=== PATIENT | female | born 1950 | race African-American/Black ===

== ENCOUNTER 2017-06-10 23:39 | Emergency (ER) | payer MEDICARE, OTHER ==
[~2017-06-10] VITALS: Ht 162.6 cm; Wt 72.0 kg
[~2017-06-10 23:39] MED LIST: ALLOPURINOL100 MG PO; AMBIEN5 MG OR; ASPIRIN LOW DOS81 M2 PO; ASPIRIN81 MG PO; CALCIUM600 M2 OR; HYDROCHLOROT25 MG OR; JANUMET1 TAB PO; JANUVIA50 MG PO; LIPITOR40 MG PO; MEDDOSEPAK PO; MELOXICAM7.5 MG PO; METFORMIN500 M1 OR; METOPROL TAR25 M1 OR; METOPROL TAR25 MG PO; NEXIUM40 M1 PO; PERCOCET 5/321 COMBO PO; SYMBICORT 80-4.5MCG IN; SYMBICORT1 AE1 IN; TEKTURNA150 MG PO; TEKTURNA300 MG OR; TORADOL OR; ULTRAM50 M1 OR; VENTOLIN HF1 IN; cozaar OR
[2017-06-11 00:25] LABS: HEMATOCRIT 40.5 % (37.0-47.0); HEMOGLOBIN 13.4 g/dl (12.0-16.0); IMMATURE GRANULOCYTES 0.3 % (0.0-1.0); MEAN CELL VOLUME 90.8 fL CALC (80.0-100.0); MEAN CORPUSCULAR HGB CONC 33.1 g/L CALC (32.0-36.0); NEUT# 3.89 thou/uL (2.00-7.15); RED BLOOD COUNT 4.46 mill/uL (4.20-5.60); RED CELL DISTRI WIDTH 14.8 % (11.5-15.5)
[2017-06-11] MEDS ORDERED: NEXIUM40 M1 PO (00:32)
[2017-06-11] MEDS ORDERED: GABAPENTIN100 MG PO (00:33)
[2017-06-11] MEDS ORDERED: AMLODIPINE2.5 MG PO (00:35)
[2017-06-11] MEDS ORDERED: CILOSTAZOL100 MG PO (00:36)
[2017-06-11] MEDS ORDERED: OXYCODONE HCL15 MG PO (00:37)
[2017-06-11 00:41] LABS: ALBUMIN 4.1 g/dL (3.2-5.0); ALKALINE PHOSPHATASE 99 u/l (38-126); ANION GAP 15 (6-22 (CALC)); BILIRUBIN, TOTAL 0.4 mg/dL (0.0-1.4); BUN 12 mg/dL (8-23); BUN/CREATININE RATIO 22 (12-20 (CALC)); CARBON DIOXIDE 28 mmol/l (22-30); CHLORIDE 105 mmol/l (95-108); CREATININE 0.6 mg/dL (0.5-1.0); GFR > 60 ML/MIN (>=60 (CALC)); GFR FOR AFR.AMER. > 60 ML/MIN (>=60 (CALC)); POTASSIUM 3.9 mmol/l (3.5-5.1); SGOT/AST 23 u/l (9-36); SGPT/ALT 33 u/l (11-66); SODIUM 144 mmol/l (137-146)
[2017-06-11 00:44] LABS: ACT PARTIAL THROMBO TIME 25.4 SECONDS (20.0-32.5); INTERNATIONAL NORMALIZED RATIO 0.9 RATIO (0.7-1.3); PROTHROMBIN TIME 10.5 SECONDS (9.0-12.5)
[2017-06-11 00:48] LABS: URINE BILIRUBIN - DIPSTICK NEGATIVE (NEGATIVE); URINE BLOOD DIPSTICK NEGATIVE (NEGATIVE); URINE CLARITY CLEAR; URINE COLOR YELLOW; URINE GLUCOSE - DIPSTICK NEGATIVE (NEGATIVE); URINE KETONE NEGATIVE (NEGATIVE); URINE LEUK ESTERASE NEGATIVE (NEGATIVE); URINE NITRITE - DIPSTICK NEGATIVE (Negative); URINE PROTEIN - DIPSTICK NEGATIVE (NEG-TRACE); URINE SPECIFIC GRAVITY <=1.005; URINE UROBILINOGEN - DIPSTICK 0.2 E.U./dL (0.2)
[2017-06-11 05:53] VITALS: BP 190/91
== END 2017-06-11 06:09 | disposition home or self-care (01) ==
LOC: ED 23:39
PROVIDERS: Emergency Medicine
DX: M79.651 Pain in right thigh (principal); G89.29 Other chronic pain; Z96.641 Presence of right artificial hip joint

== ENCOUNTER 2017-06-13 23:02 | Emergency (ER) | payer MEDICARE, OTHER ==
[~2017-06-13] VITALS: Ht 162.6 cm; Wt 65.0 kg
[~2017-06-13 23:02] MED LIST changes: +AMLODIPINE2.5 MG PO; +CILOSTAZOL100 MG PO; +GABAPENTIN100 MG PO; +OXYCODONE HCL15 MG PO
[2017-06-14 00:10] VITALS: BP 158/96
== END 2017-06-14 00:24 | disposition home or self-care (01) ==
LOC: ED 23:02
DX: R10.2 Pelvic and perineal pain (principal); M19.90 Unspecified osteoarthritis, unspecified site; F17.210 Nicotine dependence, cigarettes, uncomplicated

== ENCOUNTER 2017-09-07 16:57 | Emergency (ER) | payer MEDICARE, OTHER ==
[~2017-09-07] VITALS: Ht 162.6 cm; Wt 63.6 kg
[2017-09-07] MEDS ORDERED: HYZAAR1 TAB PO (17:49)
[2017-09-07] MEDS ORDERED: NORVASC PO (17:51)
[2017-09-07] MEDS ORDERED: OMEGA 31000 MG PO (17:53)
[2017-09-07 17:54] LABS: HEMATOCRIT 40.8 % (37.0-47.0); HEMOGLOBIN 13.7 g/dl (12.0-16.0); IMMATURE GRANULOCYTES 0.2 % (0.0-5.0); MEAN CELL VOLUME 87.4 fL CALC (80.0-100.0); MEAN CORPUSCULAR HGB 29.3 pG CALC (26.0-32.0); MEAN CORPUSCULAR HGB CONC 33.6 g/L CALC (32.0-36.0); NEUT# 3.62 thou/uL (2.00-7.15); RED BLOOD COUNT 4.67 mill/uL (4.20-5.60)
[2017-09-07] MEDS ORDERED: MAGNESIUM250 M1 PO (17:55)
[2017-09-07] MEDS ORDERED: TRAMADOL HCL50 MG PO (17:56)
[2017-09-07] MEDS ORDERED: NABUMETONE500 MG PO (18:04)
[2017-09-07 18:07] LABS: ALBUMIN 4.3 g/dL (3.2-5.0); ALKALINE PHOSPHATASE 126 u/l (38-126); ANION GAP 15 (6-22 (CALC)); BILIRUBIN, TOTAL 0.6 mg/dL (0.0-1.4); BUN 10 mg/dL (8-23); BUN/CREATININE RATIO 16 (12-20 (CALC)); CARBON DIOXIDE 26 mmol/l (22-30); CHLORIDE 106 mmol/l (95-108); CREATININE 0.6 mg/dL (0.5-1.0); GFR > 60 ML/MIN (>=60 (CALC)); GFR FOR AFR.AMER. > 60 ML/MIN (>=60 (CALC)); LIPASE 82 u/l (23-300); POTASSIUM 3.4 mmol/l (3.5-5.1); SGOT/AST 20 u/l (9-36); SGPT/ALT 24 u/l (11-66); SODIUM 144 mmol/l (137-146); TOTAL PROTEIN 7.2 g/dL (6.3-8.2)
[2017-09-07] MEDS ORDERED: ONDANSETRON4 MG PO (18:45)
[2017-09-07 19:00] VITALS: BP 152/76
[2017-09-07 19:01] LABS: URINE BILIRUBIN - DIPSTICK NEGATIVE (NEGATIVE); URINE BLOOD DIPSTICK NEGATIVE (NEGATIVE); URINE COLOR YELLOW; URINE GLUCOSE - DIPSTICK NEGATIVE (NEGATIVE); URINE KETONE NEGATIVE (NEGATIVE); URINE LEUK ESTERASE NEGATIVE (NEGATIVE); URINE NITRITE - DIPSTICK NEGATIVE (Negative); URINE PROTEIN - DIPSTICK NEGATIVE (NEG-TRACE); URINE UROBILINOGEN - DIPSTICK 0.2 E.U./dL (0.2)
[2017-09-07 19:40] LABS: URINE CLARITY CLEAR
== END 2017-09-07 19:00 | disposition home or self-care (01) ==
LOC: ED 16:57
PROVIDERS: Emergency Medicine
DX: G89.29 Other chronic pain (principal); M25.551 Pain in right hip; M79.604 Pain in right leg; R11.0 Nausea; R10.13 Epigastric pain; Z98.890 Other specified postprocedural states; F17.210 Nicotine dependence, cigarettes, uncomplicated

== ENCOUNTER 2018-06-21 18:35 | Emergency (ER) | payer MEDICARE, OTHER ==
[~2018-06-21] VITALS: Ht 162.6 cm; Wt 68.0 kg
[~2018-06-21 18:35] MED LIST changes: +HYZAAR1 TAB PO; +MAGNESIUM250 M1 PO; +NABUMETONE500 MG PO; +NORVASC PO; +OMEGA 31000 MG PO; +ONDANSETRON4 MG PO; +TRAMADOL HCL50 MG PO
[2018-06-21] MEDS ORDERED: MEDDOSEPAK PO ×2 (20:07→20:22)
[2018-06-21 20:20] VITALS: BP 106/65
== END 2018-06-21 20:20 | disposition home or self-care (01) ==
LOC: ED 18:35
DX: M25.561 Pain in right knee (principal); I10 Essential (primary) hypertension; E11.9 Type 2 diabetes mellitus without complications

== ENCOUNTER 2019-11-07 12:07 | Inpatient (IN) | payer MEDICARE, OTHER ==
[~2019-11-07] VITALS: Ht 162.6 cm; Wt 52.0 kg
--- NOTE | 2019-11-07 12:12 | NUR ---
SAW PATIENT IN ER LOBBY PATIENT ALERT AND ORIENTED TO PERSON PLACE AND TIME. PATIENT AND FAMILY ACKNOWLEDGES WAIT TIME MD NOTIFIED OF PATIENT STATUS
--- NOTE | 2019-11-07 13:25 | NUR ---
PATIENT TO ROOM VIA WHEELCHAIR AND PHYSICIAN NOTIFIED OF PATIENT STATUS
--- NOTE | 2019-11-07 14:30 | NUR ---
PT RESTING ON STRETCHER WATCHING TV. DENIES ANY NEEDS
[2019-11-07 15:10] LABS: HEMATOCRIT 25.1 % (37.0-47.0); HEMOGLOBIN 7.9 g/dl (12.0-16.0); IMMATURE GRANULOCYTES 0.8 % (0.0-5.0); MEAN CELL VOLUME 100.4 fL CALC (80.0-100.0); MEAN CORPUSCULAR HGB 31.6 pG CALC (26.0-32.0); MEAN CORPUSCULAR HGB CONC 31.5 g/dL CAL (32.0-36.0); NEUT# 9.2 thou/uL (2.00-7.15); RED BLOOD COUNT 2.5 mill/uL (4.20-5.60); RED CELL DISTRI WIDTH 19.2 % (11.5-15.5)
[2019-11-07 15:38] LABS: ALBUMIN 3.1 g/dL (3.2-5.0); ALKALINE PHOSPHATASE 111 u/l (38-126); ANION GAP 12 (6-22 (CALC)); BILIRUBIN, TOTAL 0.6 mg/dL (0.0-1.4); BUN 14 mg/dL (8-23); BUN/CREATININE RATIO 16 (12-20 (CALC)); CARBON DIOXIDE 22 mmol/l (22-30); CHLORIDE 98 mmol/l (95-108); CREATININE 0.9 mg/dL (0.5-1.0); ETHYL ALCOHOL 0 mg/dl (0-30); GFR > 60 ML/MIN (>=60 (CALC)); GFR FOR AFR.AMER. > 60 ML/MIN (>=60 (CALC)); POTASSIUM 3.5 mmol/l (3.5-5.1); SGOT/AST 39 u/l (9-36); SODIUM 129 mmol/l (137-146); TOTAL PROTEIN 6.5 g/dL (6.3-8.2)
--- NOTE | 2019-11-07 15:56 | NUR ---
PT RECONNECTED TO MONITOR AFTER RETURNING FROM XRAY. DENIES ANY NEEDS
--- NOTE | 2019-11-07 16:55 | NUR ---
PT PLACED ON BED WARREN AND SHE STATES THAT SHE CANNOT URINATE. NOTIFIED
--- NOTE | 2019-11-07 17:30 | NUR ---
PT RESTING ON STRETCHER. SHE WAS REMINDED ABOUT URINE AND WAS PLACED ON BEDPAN
[2019-11-07 18:28] LABS: URINE BILIRUBIN - DIPSTICK NEGATIVE (NEGATIVE); URINE BLOOD DIPSTICK NEGATIVE (NEGATIVE); URINE COLOR YELLOW; URINE GLUCOSE - DIPSTICK NEGATIVE (NEGATIVE); URINE KETONE TRACE mg/dL (NEGATIVE); URINE LEUK ESTERASE NEGATIVE (NEGATIVE); URINE NITRITE - DIPSTICK NEGATIVE (Negative); URINE PROTEIN - DIPSTICK TRACE mg/dL (NEG-TRACE); URINE SPECIFIC GRAVITY 1.025
--- NOTE | 2019-11-07 18:30 | NUR ---
PT WAS UNABLE TO URINATE, SHE WAS STRAIGHT CATH. URINE DARK YELLOW AND NOT CLOUDY. SHE TOLERATED WELL.
--- NOTE | 2019-11-07 18:40 | NUR ---
IT WAS NOTICED THAT HR IS ELEVATED. MD NOTIFIED. EKG DONE PROMPTLY. MD AT BEDSIDE
--- NOTE | 2019-11-07 19:14 | NUR ---
PT GIVEN CARDIZEM BOLUS FOR HR 158 AFIV WITH RVR. PT IS ALERT ORIENTED WITH NO ACTIVE HALLUCINATIONS.
--- NOTE | 2019-11-07 19:15 | NUR ---
GAVE REPORT TO ANITA SHE IS NOTIFIED OF PT RECENT CRITICALS
--- NOTE | 2019-11-07 20:50 | NUR ---
HR REMAINS IN THE 150'S. DR. HDZ CALLED AND ADVISED. ORDER FOR METOPROLOL GIVEN.
--- NOTE | 2019-11-07 21:17 | NUR ---
REPORT TO PAUL CAIN/ICU
--- NOTE | 2019-11-07 21:30 | NUR ---
PT REPOSITIONED SEVERAL TIMES FOR COMFORT. RESP EASY REG. FEELS BETTER. HR SLOWING
--- NOTE | 2019-11-07 21:41 | NUR ---
PT TO ICU WITH PORTABLE MONITOR/CARDIZEM INFUSING. PT A/O NAD. VSS.
--- NOTE | 2019-11-07 21:50 | NUR ---
PATIENT IS AWAKE, ALERT AND ORIENTED X4. PT IS ON RA, SATS 100%, NO SOB NOTED. NURSING ASSESSMENT PERFORMED, COMPLAINS OF "TAILBONE" PAIN, I LET HER KNOW I WOULD NOTIFY THE DR PLANT CONTROLS SPECIALIST TONIGHT. REPORTS IT STARTED SINCE SHE HAS BEEN USING A BEDSIDE COMMODE AT HOME ABOUT TW0 WEEKS AGO. ADMISSION COMPLETED. L-CHEST PORT INTACT, CARDIZEM DRIP INFSUING AT 20 MG/HR AT ARRIVAL FROM ER, PT IS SR ON TELEMETRY, WILL WEAN DOWN, HR RANGES IN THE 90'S. BP WNL. EVA HOSE PLACED. SNACKS PROVIDED AND ASTER MARILUZ. POC DISCUSSED, PATIENT UNDERSTANDS AND AGREES. CALL LIGHT WITHIN REACH.
[2019-11-07 22:00] VITALS: BP 109/50
[2019-11-07 22:15] VITALS: BP 117/66
[2019-11-07 22:30] VITALS: BP 120/64
[2019-11-07 22:45] VITALS: BP 121/62
[2019-11-07 23:00] VITALS: BP 115/56
[2019-11-07 23:15] VITALS: BP 113/66
--- NOTE | 2019-11-07 23:28 | NUR ---
EKG PERFORMED BY RESPIRATORY THERAPIST, NSR WITH 1ST DEGREE AV BLOCK. HR 95-102 BPM. BLOOD PRESSURE WNL.
--- NOTE | 2019-11-07 23:46 | NUR ---
NOTIFIED DR DOMINGUEZ OF PATIENT C/O TAILBONE PAIN AND HOW IT STARTED, NEW ORDERS PLACED FOR COCCYX/SACRUM X-RAY.
[2019-11-08] VITALS (21 sets, daily range): BP systolic 99–146; BP diastolic 50–92
--- NOTE | 2019-11-08 00:18 | NUR ---
BLOOD DRAWN FROM LEFT CHEST PORT. PT TOLERATED WELL.
--- NOTE | 2019-11-08 01:35 | NUR ---
PATIENT WAS SAFELY TRANSFERRED TO A STRETCHER FOR AN XRAY FOR HER COCCYX, PT WAS ABLE TO TOLERATE PROCEDURE, PT SAFELY TRANSFERRED BACK TO BED. PLACED A PILLOW UNDER HER BUTTOCKS AND A HEAT PACK. CALL LIGHT WITHIN REACH.
--- NOTE | 2019-11-08 02:20 | NUR ---
PATIENT ACID REGENERATOR LIGHT, PERICARE PROVIDED, NEW BRIEF PLACED. PT IS INCONTINENT. PT REPOSITIONED TO HER LEFT SIDE. CALL LIGHT WITHIN REACH.
--- NOTE | 2019-11-08 03:15 | NUR ---
PATIENT HIGH SCHOOL BIOLOGY TEACHER LIGHT, REQUESTS TO BE ASSISTED TO STAND UP. PT ASSISTED TO STAND. PT HAS GENERALIZED WEAKNESS. PT REPORTS SHE IS TIRED OF LAYING IN BED ALL DAY. I OFFERED HER THE RECLINER, PATIENT AGREED, PT NOW SITS WITH LEGS UP IN THE RECLINER. CALL LIGHT WITHIN REACH.
--- NOTE | 2019-11-08 04:10 | NUR ---
PT FOREST FIRE CONTROL OFFICER LIGHT, REQUESTS TO LAY BACK IN BED. TRANSFERRED WITH ASSIST X2. LAYS ON HER LEFT SIDE. CALL LIGHT WITHIN REACH.
--- NOTE | 2019-11-08 06:15 | NUR ---
BLOOD DRAWN FROM PATIENT'S LEFT SIDE CHEST. NO COMPLAINTS OR NEEDS AT THIS TIME.
[2019-11-08 06:28] LABS: HEMATOCRIT 23.1 % (37.0-47.0); HEMOGLOBIN 7.3 g/dl (12.0-16.0); IMMATURE GRANULOCYTES 0.5 % (0.0-5.0); MEAN CELL VOLUME 99.6 fL CALC (80.0-100.0); MEAN CORPUSCULAR HGB 31.5 pG CALC (26.0-32.0); MEAN CORPUSCULAR HGB CONC 31.6 g/dL CAL (32.0-36.0); NEUT# 8.56 thou/uL (2.00-7.15); RED BLOOD COUNT 2.32 mill/uL (4.20-5.60); RED CELL DISTRI WIDTH 18.9 % (11.5-15.5)
[2019-11-08 06:38] LABS: ANION GAP 9 (6-22 (CALC)); BUN 12 mg/dL (8-23); BUN/CREATININE RATIO 16 (12-20 (CALC)); CARBON DIOXIDE 24 mmol/l (22-30); CHLORIDE 97 mmol/l (95-108); CREATININE 0.8 mg/dL (0.5-1.0); GFR > 60 ML/MIN (>=60 (CALC)); GFR FOR AFR.AMER. > 60 ML/MIN (>=60 (CALC)); MAGNESIUM 1.7 mg/dL (1.6-2.3); POTASSIUM 3.1 mmol/l (3.5-5.1); SODIUM 127 mmol/l (137-146)
--- NOTE | 2019-11-08 07:42 | NUR ---
Patient is screened for rehab intervention and no needs are identified at this time
--- NOTE | 2019-11-08 07:54 | NUR ---
RECIEVED REPORT FROM PAUL CASTELAN. PT RESTINGIN SEMI FOWLERS POSTIION UPON ENTERING ROOM. INTRODUCED SELF TO PT AND DISCUSSED POC. PT IS A/O X3. ASESSMENT AND VITALS OBTAINED AT THIS TIME. BP 118/69, HR 102, O2 100% ON ROOM AIR. REPSIRATIONS ARE EVEN AND UNLABORED WITH NO SIGNS OF DISTRES NOTED. LUNG SOUNDS ARE CLEAR. HEART RHYTHM IS NORMAL WITH TELE IN PLACE. BOWEL SOUNDS ARE ACTIVE IN ALL QUADRANTS, LAST REPORETD BM 11/08/2019. RADIAL AND PEDAL PULSES ARE STRONG WITH NORMAL CAPILLARY REFILL. RIGHT CHEST PORT RUNNING WITH IVF PER ORDER, SITE APPEARS HEALTHY AND PATENT. PT COMPLAINS OF 9/10 PAIN IN HIPS AND COCCYX.Q2 TURING ENFORCED WITH PILLOWS AND PT REQUESTED ICE PACKS. PT TO BE MEDICICATED PER EMAR. PT DENIES ANY OTHER PAIN OR DISCOMFORTS AT THIS TIME. ALL SAFETY PRECAUTIONS ARE IN PLACE. WILL CONTINUE TO MONITOR
--- NOTE | 2019-11-08 08:44 | NUR ---
SPOKE WITH SISTER OF PT. PERMISSION FROM PT TO GIVE SISTER CODE. UPDATE OF PT GIVEN TO SISTER.
--- NOTE | 2019-11-08 08:50 | NUR ---
DR DOMINGUEZ AT BEDSIDE DISCUSS POC WITH PT
--- NOTE | 2019-11-08 09:00 | NUR ---
NOTIFIED OF PT COMPLAINTS OF COCCYX PAIN. LORTAB ORDERED. PT STATES SHE WOULD LIKE TO TRY TYLENOL FIRST.
--- NOTE | 2019-11-08 10:14 | NUR ---
REASSESSMENT OF PAIN AT THIS TIME RESULTING IN 10/15. Q2 TURING EDNFORCED. PT TYPE AND SCREENED. 1 UNIT OF RBC ORDERED. ALL SFAETY PRECAUTIONS ARE IN PLACE. WILL CONTINUE TO MONITOR
--- NOTE | 2019-11-08 11:01 | NUR ---
CONSENT OBTAINED FOR RBCS. PT DENIED ANY QUESTIONS.
--- NOTE | 2019-11-08 12:03 | NUR ---
UNIT OF BLOOD STARTED BY Raj TORRES RN. PT EDUCATED ION S/S OF TRANSFUSION REACTIONS. PT VERBALIZED UNDERSTANDING. RESPIRATIONS ARE EVEN AND UNLABORED WITH NO SIGNS OF DISTRESS NOTED. TRANSFUSION RUNNING WITH EASE IN CHEST PORT.WRITTER TO REMAIN WITH PT FOR INITIAL 15 MIN. ALL SAFTEY PECAUTIONSA RE IN PLACE. WILL CONTINUE TO MONITOR
--- NOTE | 2019-11-08 12:16 | NUR ---
RBC RUNNING WTH EASE IN PORT. PT DENIES ANY S/S OF TRANSFUSION REACTIONS. VITALS SISGNS OBTAINED. BP 99/53, HR 77, O2 100% RESPIRATIONS ARE EVEN AND UNLABORED WITH NO SIGNS OF DISTRESS NOTED. PT REEDUCATED ON S/S OF TRANSFUSION REACTIONS. PT VERBALIZED UNDERSTANDING. ALL SFAETY PRECAUTIONS ARE IN PLACE. MALACHI CONTINUE TO MONITOR
--- NOTE | 2019-11-08 13:01 | NUR ---
RBC RUNNING WITH EASE THROUGH LEFT PORT. PT DENIES ANY S/S OF TRANSFUSION REACTIONS. VITALS OBTAINED. BP 103/50, HR 77, O2 100% ON ROOM AIR. RESPIRATIONS ARE EVEN AND UNLABORED WITH NO SIGNS OF DISTRESS NOTED. PT RE-EDUCATED ON S/S OF TRANSFUSION REACTION. PT VERBAILZED UNDERSTANDING. ALL SAFETY PRECAUTIONS ARE IN PLACE. WILL CONTINUE TO MONITOR
--- NOTE | 2019-11-08 14:10 | NUR ---
RBC TRANSFUSING WITH EASE IN LEFT CHEST PORT. PT DENIES ANY S/S OF TRANSFUSION REACTION. RESPIRATIONS ARE EVEN AND UNLABORED WITH NO SIGNS OF DISTRESS NOTED. PT INCONTIENT OF URINE AT THIS TIME. WRITTER ASSISTED PT WITH CLEANING UP. PT STATED SHE COULD GET UP AND USE BSC IF SHE WAS HELPED. BSC PLACED IN ROOM. WRITTER ENCOURAGED PT TO CALL FOR ASSISTANCE. ALL SAFTY PRECAUTIONS ARE IN PLACE WITH CALL LIGHT IN REACH. WILL CONTINUE TO MONITOR.
--- NOTE | 2019-11-08 15:07 | NUR ---
RBC TRANSFUSION ENDED. VITALS OBTAINED. BP 106/58, HR 70, O2 96% ON ROOM AIR. REPSIRATIONS ARE EVEN AND UNLABORED WITH NO SIGNS OF DISTRESS NOTED. PT DENIES ANY PAIN OR DISCOMFORTS AT THIS TIME. ALL SAFETY PRECAUTIONS ARE IN PLACE. WILL CONTINUE TO MONITOR.
--- NOTE | 2019-11-08 15:47 | NUR ---
NOTIFIED OF PT COMPLAINTS OF COCCYX PAIN. LORTAB ORDERED.PT STATES SHE WOULD LIKE LIKE TO TRY THE TYLENOL FIRST.
--- NOTE | 2019-11-08 16:25 | NUR ---
PT RESTING IN SEMI FOWLERS POSITION WITH VISITOR AT BEDSIDE. RESPIRATIONS ARE EVEN AND UNLABORED WITH NO SIGNS OF DISTRESS NOTED. SR ON PAYROLL DIRECTOR. PT DENIES OF ANY PAIN OR DISCOMFORTS AT THIS TIME.IVF RUNNING PER ORDER, SITE APPEARS HEALTHY AND PATENT. ALL SAFETY PRECAUTIONS ARE IN PLACE WITH CALL LIGHT IN REACH. WILL CONTINUE TO MONITOR.
--- NOTE | 2019-11-08 21:38 | NUR ---
PATIENT ABLE TO TOLERATE HER BEDTIME MEDICATIONS. NO COMPLAINTS OF PAIN. NURSE ASSSESSMENT PERFORMED. PATIENT WATCHES TV. LEFT CHEST PORT INTACT, NS AT 100 ML/HR. LAYS ON HER LEFT SIDE. BP 140'S SYSTOLIC. SR ON TELEMETRY, HR RANGES 90'S. O2 SATS WNL, NO SOB NOTED. NO NEEDS AT THIS TIME. CALL LIGHT WITHIN REACH. POC DISCUSSED.
[2019-11-09] VITALS (9 sets, daily range): BP systolic 117–156; BP diastolic 56–73
--- NOTE | 2019-11-09 00:21 | NUR ---
PT REQUESTS SLEEPING MEDICATION, PROVIDED. ABLE TO SWALLOW WITHOUT DIFFICULTY, NEW ICED WATER WILL BE PROVIDED. WATCHES TV. CALL LIGHT WITHIN REACH.
--- NOTE | 2019-11-09 06:00 | NUR ---
PATIENT RESTS IN BED, WATCHES TV. NO ACUTE DISTRESS SHOWN. CALL LIGHT WITHIN REACH.
--- NOTE | 2019-11-09 06:00 | NUR ---
OMAR FIORE NOTIFIED ME EARLY THIS MORNING SHE WAS ASSISTING PATIENT TO BSC, PATIENT SLOWLY SAT HERSELF ON THE FLOOR. PATIENT DID NOT FALL, SHE IS WEAK AND WHEN TRANSFERRING SHE DECIDE TO SIT ON THE FLOOR SINCE SHE FELT TOO WEAK AT THAT MOMENT. NO COMPLAINTS FROM PATIENT, NO PAIN COMPLAINTS.
--- NOTE | 2019-11-09 06:45 | NUR ---
RECIEVED REPORT FROM PAUL CARVAJAL. ASSUMED PT CARE.
--- NOTE | 2019-11-09 07:30 | NUR ---
PT A&OX4, ABLE TO MAKE NEEDS KNOWN. PT REMAINS SR ON TELEMETRY, HR 90. PT DENIES CP, SOB OR DISTRESS NOTED AT THIS TIME. RESPIRATIONS EVEN/UNLABORED, LS CLEAR/DIMINISHED THROUGHOUT. SA02@99%RA. ABDOMEN SOFT, NON TENDER, BSX4 ACTIVE. LBM 10-3-20. PT CONTINUES WITH GENERALIZED WEAKNESS AND STRESS INC. CALL LIGHT IN REACH, WILL MONITOR.
--- NOTE | 2019-11-09 08:00 | NUR ---
PT INC OF URINE, GOOD ASHLEE CARE, COMPLETE BED BATH GIVEN AND BED LINEN CHANGED. PT TOLERATED WELL. BLOOD OBTAINED FROM PORT FOR AM LABS, FLUSHED. PT TOLERATED WELL.
[2019-11-09 08:17] LABS: HEMATOCRIT 27.9 % (37.0-47.0); HEMOGLOBIN 9.2 g/dl (12.0-16.0); MEAN CELL VOLUME 96.5 fL CALC (80.0-100.0); MEAN CORPUSCULAR HGB 31.8 pG CALC (26.0-32.0); RED BLOOD COUNT 2.89 mill/uL (4.20-5.60); RED CELL DISTRI WIDTH 19.9 % (11.5-15.5)
--- NOTE | 2019-11-09 09:00 | NUR ---
PT DAUGHTER MANJU CALLED [phone] WITH CODE. STATED FAMILY WAS VERY CONCERNED FOR PT SAFETY AT DISCHARGE, PT LIVES ALONE AND UNABLE TO CARE FOR SELF. DAUGHTER TRANSFERRED TO .
[2019-11-09 09:01] LABS: ANION GAP 10 (6-22 (CALC)); BUN 7 mg/dL (8-23); BUN/CREATININE RATIO 10 (12-20 (CALC)); CARBON DIOXIDE 23 mmol/l (22-30); CHLORIDE 101 mmol/l (95-108); CREATININE 0.7 mg/dL (0.5-1.0); GFR > 60 ML/MIN (>=60 (CALC)); GFR FOR AFR.AMER. > 60 ML/MIN (>=60 (CALC)); POTASSIUM 3.5 mmol/l (3.5-5.1); SODIUM 130 mmol/l (137-146)
--- NOTE | 2019-11-09 09:15 | NUR ---
DR. DOMINGUEZ AT BEDSIDE FOR ASSESSMENT AND TO DISCUSS PLAN OF CARE. NEW ORDERS RECIEVED.
--- NOTE | 2019-11-09 10:00 | NUR ---
PT ASSISTED WITH BEDPAN, VOIDED 250ML URINE, PERICARE GIVEN. CALL LIGHT IN REACH. WILL MONITOR.
--- NOTE | 2019-11-09 11:30 | NUR ---
PT INC OF WATERY BM, GOOD ASHLEE CARE GIVEN, NEW BRIEF.
--- NOTE | 2019-11-09 12:46 | NUR ---
PT ASSISTED WITH BEDPAN, BM NOTED. GOOD PERICARE GIVEN. PT SON ARRIVED AT BEDSIDE FOR A VISIT.
--- NOTE | 2019-11-09 13:01 | NUR ---
PT SON LEFT BEDSIDE LEAVING PT PERSONAL WALKER AT BEDSIDE PER PT REQUEST.
--- NOTE | 2019-11-09 13:34 | NUR ---
PT CAME FROM ICU VIA BED BY NURSE. INFORMATION CLERK IN ROOM TO OBTAIN VS.
--- NOTE | 2019-11-09 13:37 | NUR ---
REPORT GIVEN TO PAUL BRUSH. PT TRANSPORTED TO [facility] BED 260.
--- NOTE | 2019-11-09 14:00 | NUR ---
PT IS RESTING IN BED WITH NO S/S OF DISTRESS NOTED. PT DENIES ANY NEEDS AT THIS TIME. TELE IN PLACE READING SR 79 .SAFETY PRECAUTIONS REINFORCED AND CALL LIGHT IN REACH.
--- NOTE | 2019-11-09 16:00 | NUR ---
PT IS RESTING IN BED PT DENIES NEEDS. PT STATED SHE JUST WANTS TO SLEEP. CALL LIGHT IN REACH.
--- NOTE | 2019-11-09 20:00 | NUR ---
PT RESTING IN BED NO S/S OF DISTRESS NOTED.
[2019-11-10] VITALS (7 sets, daily range): BP systolic 100–133; BP diastolic 39–77
--- NOTE | 2019-11-10 01:23 | NUR ---
PT C/O /10 PAIN TO LOWER LUMBAR AREA, PRN LORTAB GIVEN WITH GOOD EFFECT, PT URINATED IN BEDPAN STRAW COLORED URINE, NO CONCERNS.
--- NOTE | 2019-11-10 04:30 | NUR ---
PT SLEEPING IN BED WITH N S/S OF DISTRESS.
--- NOTE | 2019-11-10 07:00 | NUR ---
REPORT RECEIVED FROM PAUL LIND;PT APPEARS TO BE SLEEPING IN SEMI FOWLERS POSITION;NO S/S OF DISTRESS NOTED;RESPIRATIONS APPEAR EVEN AND UNLABORED;TELE MONITORING IN PLACE;ALL SAFETY PRECAUTIONS REMAIN IN PLACE WITH BED IN THE LOWEST POSITION AND CALL LIGHT IN REACH;WILL CONTINUE TO MONITOR
--- NOTE | 2019-11-10 08:00 | NUR ---
PT RESTING IN SEMI FOWLERS POSITION,A&O X3;VS OBTAINED AND ASSESSMENT COMPLETED;PT DENIES ANY CURRENT PAIN OR DISCOMFORTS,PAIN SCALE AND REPORTING EDUCATED;RESPIRATIONS EVEN AND UNLABORED ON RA,CLEAR LUNG SOUNDS;NON-PRODUCTIVE COUGH NOTED AT TIMES;ABDOMEN SOFT ON PALPATION AND ACTIVE IN ALL 4 QUADRANTS, PT HAD MODERATE LOOSE BM;WEAK PEDAL PULSES;SKIN INTACT;TELE MONITORING IN PLACE;LEFT UPPER CHEST PORT INFUSING NS @ 100ML/HR,SITE APPEARS HEALTHY;ACCUCHECK 78, NO COVERAGE NEEDED;PT DENIES ANY ADDITIONAL NEEDS AT THIS TIME AND IS ENCOURAGED TO CALL FOR ASSISTANCE IF NEEDED;FALL PRECAUTIONS IN PLACE WITH BED IN THE LOWEST POSITION AND CALL LIGHT IN REACH;WILL CONTINUE TO MONITOR
--- NOTE | 2019-11-10 08:16 | NUR ---
AT BEDSIDE DISCUSSING POC.
--- NOTE | 2019-11-10 12:13 | NUR ---
PT TRANSPORTED TO [facility] IN STABLE CONDITION VIA WHEELCHAIR ACCOMPANIED BY OMAR HORN.
--- NOTE | 2019-11-10 12:23 | NUR ---
PT TRANSPORTED BACK TO MED/SURG ROOM 260 IN STABLE CONDITION VIA WHEELCHAIR ACCOMPANIED BY OMAR VACA.
--- NOTE | 2019-11-10 13:00 | NUR ---
PT RESTING IN SEMI FOWLERS POSITION;RESPIRATIONS EVEN AND UNLABORED ON RA;PT DENIES ANY CURRENT PAIN OR NEEDS;TELE MONITORING IN PLACE;IV FLUIDS INFUSING WITH EASE PER ORDER;ASSESSMENT REMAINS UNCHANGED AT THIS TIME;ENCOURAGED PT TO CALL FOR ASSISTANCE IF NEEDED;FALL PRECAUTIONS IN PLACE WITH BED IN THE LOWEST POSITION WITH CALL LIGHT IN REACH;WILL CONTINUE TO MONITOR
--- NOTE | 2019-11-10 17:08 | NUR ---
PT RESTING IN SEMI FOWLERS POSITION;RESPIRATIONS EVEN AND UNLABORED ON RA;PT DENIES ANY CURRENT PAIN OR DISCOMFORTS;LEFT SUBCLAVIAN CHEST PORT INFUSING NS PER ORDER WITH EASE;TELE MONITORING IN PLACE;ACCUCHECK 84,NO COVERAGE NEEDED;ASSESSMENT REMAINS UNCHANGED AT THIS TIME;ENCOURAGED TO CALL FOR ASSISTANCE IF NEEDED;CALL LIGHT IN REACH;WILL CONTINUE TO MONITOR
--- NOTE | 2019-11-10 19:30 | NUR ---
RECEIVED REPORT FROM NURSE SUE, PATIENT APPEARS TO BE SLEEPING WITH EYES CLOSED, BREATHING EVEN UNLABORED, NO DISCOMFORTS NOTED AT THIS TIME, CALL LIGHT AT REACH.
--- NOTE | 2019-11-10 20:00 | NUR ---
PATIENT ALERT ORIENETD ABLE TO MAKE NEEDS KNONW, WITH ONGOING NS @ 100CC/HR INFUSING WELL ON SYLVESTER, REMAINS ON TELE SR WITH AVB 81, DENIES PAINS ON DISCOMFORTS AT THIS TIME, LBM 10, CALL LIGHT AT REACH.
--- NOTE | 2019-11-11 | NUR ---
PATIENT APPEARS TO BE SLEEPING WITH EYES CLOSED,BREATHING EVEN UNLABORED, CALL LIGHT AT REACH.
[2019-11-11 04:00] VITALS: BP 114/34
[2019-11-11 05:06] LABS: HEMATOCRIT 28.1 % (37.0-47.0); HEMOGLOBIN 9.1 g/dl (12.0-16.0); MEAN CELL VOLUME 95.3 fL CALC (80.0-100.0); MEAN CORPUSCULAR HGB 30.8 pG CALC (26.0-32.0); MEAN CORPUSCULAR HGB CONC 32.4 g/dL CAL (32.0-36.0); RED BLOOD COUNT 2.95 mill/uL (4.20-5.60); RED CELL DISTRI WIDTH 18.8 % (11.5-15.5)
--- NOTE | 2019-11-11 05:09 | NUR ---
PATIENT APPEARS TO BE SLEEPING, STILL WITH ONGOING NS @ 100CC/HR INFUSING WELL, CHEST PORT FLUSHED PER PROTOCOL, GOOD BLOOD RETURN, CALL LIGHT AT REACH.
[2019-11-11 05:28] LABS: ANION GAP 9 (6-22 (CALC)); BUN 6 mg/dL (8-23); BUN/CREATININE RATIO 11 (12-20 (CALC)); CARBON DIOXIDE 24 mmol/l (22-30); CHLORIDE 98 mmol/l (95-108); CREATININE 0.6 mg/dL (0.5-1.0); GFR > 60 ML/MIN (>=60 (CALC)); GFR FOR AFR.AMER. > 60 ML/MIN (>=60 (CALC)); MAGNESIUM 1.6 mg/dL (1.6-2.3); POTASSIUM 2.8 mmol/l (3.5-5.1); SODIUM 129 mmol/l (137-146)
--- NOTE | 2019-11-11 07:00 | NUR ---
RECEIVED REPORT FROM PAUL MIRANDA.
[2019-11-11 07:40] VITALS: BP 103/58
--- NOTE | 2019-11-11 07:50 | NUR ---
ASSESSED PATIENT AT THIS TIME (SEE ASSESSMENT INTERVENTIONS) PATIENT STATED SHE "FEELS BETTER" SINCE RECEIVING PAIN MEDICATION. PATIENT EDUCATED ON ASKING FOR PAIN MEDICATION WHEN NEEDED. PATIENT BREAKFAST ARRIVE AND PATIENT WAS HELPED WITH SETTING UP TRAY. PATIENT STATED "I AM HUNGRY TODAY". SIDERAILS ARE UP CALL LIGHT WITHIN REACH. PATIENT BRENNAN ANY OTHER NEEDS AT THIS TIME AND NO COMPLAINTS.
--- NOTE | 2019-11-11 08:24 | NUR ---
AT BEDSIDE DISCUSSING POC WITH PT.
--- NOTE | 2019-11-11 09:00 | NUR ---
PHYSICAL THERAPIST IN TO SEE PATIENT AT THIS TIME.
--- NOTE | 2019-11-11 09:21 | NUR ---
PT. NOTE Miss Santos was in semi-fowlers position upon entering room as nurse was administering meds. When finished miss santos agreed to participate in therapy session. Initiated with ankle pupmps x 15 bilaterally, heel slides(modified) x 10 bilaterally, towards reps 6-10 (MOD A), hip adduction/abduction x 10 reps 4-10 (MOD A). Supine>sit MOD-MAX A, verbal cues for patient not use upper extremities to position legs to bed side. executed 10 long arc quads bilaterally reps 7-10 (MOD A). seated>supine (MOD A) required assistance w/ lower exttemities over bed side. miss santos was in semi flowlers position with call rose and tray table by bed side. AMPAC 6 score remains unchanged of 8
[2019-11-11 10:50] VITALS: BP 90/52
[2019-11-11 11:25] VITALS: BP 102/72
--- NOTE | 2019-11-11 11:26 | NUR ---
1UNIT OF NOVOLOG GIVEN IN LEFT LOWER ABD. FOR GLUCOSE OF 171. PATIENT TOLERATED WITHOUT COMPLAINT. PATIENT B/P AT THIS TIME IS 102/72.
--- NOTE | 2019-11-11 13:30 | NUR ---
PATIENT CALLED FOR BEDSIDE COMMODE AND WAS INCONTINET OF LARGE AMOUNT OF URINE. PATIENT GIVEN ASHLEE-CARE, NO REDDNESS NOTED AT THIS TIME SKIN BARRIER CREAM APPLIED.
--- NOTE | 2019-11-11 14:48 | NUR ---
PATIENT REQUESTING PAIN MEDICATION AT THIS TIME. PATIENT STATED HER PAIN LEVEL WAS A 7 OUT OF A SCALE 0-10. PATIENT STATES PAIN IS ACHING AND IN HER LOWER BACK. PATIENT MEDICATED AT THIS TIME WITH NORCO 5MG AND WAS REPOSTIONED AT THIS TIME.
[2019-11-11 15:00] VITALS: BP 110/60
--- NOTE | 2019-11-11 15:35 | NUR ---
RAPID NASAL SWAB OBTAIN BY JAVIER FOR R/0 COVID FOR PLACEMENT.
[2019-11-11] MEDS ORDERED: KLOR-CON M2020 MEQ PO (15:43)
[2019-11-11] MEDS ORDERED: SOD CHLORIDE1 G2 PO (15:43)
--- NOTE | 2019-11-11 17:39 | NUR ---
DISCHARGE INSTRUCTIONS GONE OVER WITH PATIENT WITH FAMILY IN ROOM. PATIENT ACKNOWLEGES AND UNDERSTANDS ALL DISCHARGE INSTRUCTION. PATIENT POWER PORT WAS DEACCESSED AT THIS TIME AND TELE MONITOR REMOVED [facility] CALLED AND NOTIFIED. PATIENT EXPRESSES NO OTHER COMPLAINTS AT THIS TIME. PATIENT FAMILY IN ROOM.
--- NOTE | 2019-11-11 18:55 | NUR ---
PATIENT LEFT WITH [facility] ([facility]) AT THIS TIME. ALL PERSONAL BELONGING SENT WITH PATIENT. SON TOOK WALKER TO RESIDENCE. PACKET WITH PRESCRIPTIONS WENT WITH PATIENT.
--- NOTE | 2019-11-11 19:12 | NUR ---
REPORT CALLED TO [facility] SPOKE WITH PAUL HODGES.
== END 2019-11-11 18:53 | DRG 309 ==
LOC: ED 12:07 → ED-I 18:47 → ED 19:04 → ICU 19:05 → MS2 19:05
PROVIDERS: Family Medicine; Nurse Practitioner; ADMIT Internal Medicine; ATTEND Internal Medicine
PROC: 30233N1 Transfusion of Nonautologous Red Blood Cells into Peripheral Vein, Percutaneous Approach (ICD-10-PCS; principal; 2019-11-08)
DX: I48.91 Unspecified atrial fibrillation (principal); C34.91 Malignant neoplasm of unspecified part of right bronchus or lung; R64 Cachexia; Z68.1 Body mass index [BMI] 19.9 or less, adult; E87.1 Hypo-osmolality and hyponatremia; R44.0 Auditory hallucinations; D64.9 Anemia, unspecified; I10 Essential (primary) hypertension; E11.9 Type 2 diabetes mellitus without complications; R44.1 Visual hallucinations; T42.6X5A Adverse effect of other antiepileptic and sedative-hypnotic drugs, initial encounter; T40.2X5A Adverse effect of other opioids, initial encounter; M19.90 Unspecified osteoarthritis, unspecified site; E87.6 Hypokalemia; M53.3 Sacrococcygeal disorders, not elsewhere classified; R53.1 Weakness; Z91.81 History of falling; Z79.84 Long term (current) use of oral hypoglycemic drugs; Z79.82 Long term (current) use of aspirin; Z88.6 Allergy status to analgesic agent; Z79.899 Other long term (current) drug therapy; Z60.2 Problems related to living alone; Z20.828 Contact with and (suspected) exposure to other viral communicable diseases
CPT/HCPCS: G0378; J3475; P9016